=== PATIENT | male | born 1990 | race African-American/Black ===

== ENCOUNTER 2023-11-17 06:34 | Day surgery (SDC) | payer OTHER ==
[~2023-11-17] VITALS: Ht 172.7 cm; Wt 107.5 kg
[~2023-11-17 06:34] MED LIST: LR 1,000 ML IV SCH
[2023-11-17] MEDS ORDERED: Succinylcholine PF 200 MG/10 ML SYRINGE IV ONE (07:19)
[2023-11-17] MEDS ORDERED: Lidocaine PF 2% (20 MG/ML) 5 ML VIAL ONE (07:19)
[2023-11-17] MEDS ORDERED: Ondansetron 4 MG/2 ML VIAL ONE (07:19)
[2023-11-17] MEDS ORDERED: dexAMETHasone 10 MG/ML VIAL ONE (07:19)
[2023-11-17] MEDS ORDERED: Midazolam 2 MG/2 ML VIAL ONE (07:19)
[2023-11-17] MEDS ORDERED: NS 100 ML IV ONE (07:26)
[2023-11-17] MEDS ORDERED: Albuterol/Ipratropium 3 MG-0.5 MG/3 ML Neb Soln IH ONE (07:30)
[2023-11-17] MEDS ORDERED: Tranexamic Acid 1,000 MG/10 ML VIAL ONE (07:51)
[2023-11-17] MEDS ORDERED: PEPCID 20MG TAB20 MG PO (07:55)
[2023-11-17] MEDS ORDERED: TYLENOL 325MG325 MG PO (07:56)
[2023-11-17 08:05] VITALS: BP 114/77; PULSE 82; TEMP 98
--- NOTE | 2023-11-17 09:15 | NUR ---
0810-DR HUTSON AT BEDSIDE DISCUSSING THE CHANGE IN PROCEDURES WITH THE PT AND HIS . THEY VERBALIZED UNDERSTANDING. 0830-CALL FROM CT WITH TIME PT WILL BE GOING AT 1115. 0915-PT DENIES ANY NEEDS AT THIS TIME.
--- NOTE | 2023-11-17 11:11 | NUR ---
1000-PT CONTINUES TO DENY ANY NEEDS. 1050-NOTIFIED CT TO BE RESCHEDULED. 1055-DR HUTSON NOTIFIED OF NEEDING TO RESCHEDULE CT. 1105-PT NOTIFIED THAT CT WILL NEED TO BE RESCHEDULED. PT SPOKE WITH CT SCHEDULING TO CONFIRM NEW DATE AND TIME FOR PROCEDURE. 1107-IV DC'D AT THIS TIME. TIP INTACT. 1110-PT OFF UNIT AMBULATING WITHOUT DIFFICULTY. PT DISCHARGED TO HOME WITH HIS .
[2023-11-19] MEDS ORDERED: NAPROSYN500 MG PO (10:02)
[2023-11-19] MEDS ORDERED: PEPCID 20MG TAB20 MG PO (10:03)
== END 2023-11-17 11:10 | disposition home or self-care (01) ==
LOC: SDCO 06:34 → EDSEX 08:00 → SDCO 08:00
DX: R93.89 Abnormal findings on diagnostic imaging of other specified body structures (principal); G47.33 Obstructive sleep apnea (adult) (pediatric); R05.9 Cough, unspecified; F17.210 Nicotine dependence, cigarettes, uncomplicated; Z99.89 Dependence on other enabling machines and devices; Z53.8 Procedure and treatment not carried out for other reasons
CPT/HCPCS: J1100; J2250; J2405; J2704; J7120

== ENCOUNTER → 2023-11-24 | Outpatient (CLI) | payer OTHER ==
[~2023-11-24] VITALS: Ht 172.7 cm; Wt 109.0 kg
[~2023-11-24] MED LIST changes: -LR 1,000 ML IV SCH; +NAPROSYN500 MG PO; +PEPCID 20MG TAB20 MG PO; +TYLENOL 325MG325 MG PO
[2023-11-24 08:04] VITALS: BP 112/73; PULSE 66; TEMP 98.2
--- NOTE | 2023-11-24 10:09 | NUR ---
PATIENT CAME IN TODAY FOR A CT GUIDED BIOPSY. UPON REVIEW OF THE CT IMAGES, DR. CHERRY DECIDED NOT TO PROCEED WITH THE BIOPSY. PATIENT INFORMED TO FOLLOW UP WITH DR. HUTSON BY DR. CHERRY. PATIENT ESCORTED BACK TO RAD HOLDING AREA. IV REMOVED WITHOUT ISSUE. PATIENT ESCORTED BACK TO WAITING AREA WHERE HIS WAS WAITING. PATIENT HAS ALL PERSONAL ITEMS WITH HIM. ALL QUESTIONS ANSWERED AND NEEDS MET.
== END ==
LOC: COL.RAD 07:20
DX: R93.89 Abnormal findings on diagnostic imaging of other specified body structures (principal)